=== PATIENT | female | born 1960 | race Caucasian/White ===

== ENCOUNTER 2020-11-08 16:52 | Emergency (ER) | payer OTHER ==
--- OUTSIDE RECORDS SUMMARY | 2020-11-08 16:53 | XMS REPORT | Continuity of Care Document ---
:1960 Author Organization [facility] t Address [address] [place] [address] Care Team Providers Name Role Phone José HERNANDEZ, K.H. Attending Clinician Problems This patient has no known problems. Allergies, Adverse Reactions, Alerts This patient has no known allergies or adverse reactions. Medications This patient has no known medications. Procedures This patient has no known procedures. Encounters Start End Encounter Admission Attending Care Care Encounter Source Date/Time Date/Time Type Type Clinicians Facility Department ID 2020-09-19 2020-09-19 Office SERGEY Kumar [id number] 14 08:58:56 10:41:40 Visit Arina Mohan [id number] César [id number] Michelle [id number] nal 059 Building Results This patient has no known results.
[2020-11-08 17:57] LABS: Protime INR 1.02
[2020-11-08 17:58] LABS: Absolute Lymphocytes (CBC) 1.2 K/uL (0.7-4.9); Basophils % 0.6 % (0-1.3); Hematocrit 42.3 % (36.0-45.0); Lymphocytes % 12.4 % (15.3-44.8); MPV 8.1 fL (7.6-11.3); RBC Red Blood Cell Count 4.29 M/uL (3.86-4.86)
[2020-11-08 18:34] LABS: Potassium 3.6 mmol/L (3.5-5.1); Troponin (Emerg Dept Use Only) 0.02 ng/mL (0.0-0.045)
--- NOTE | 2020-11-08 19:47 | RAD REPORT ---
EXAM DESCRIPTION: CT - Chest For Pe Angio - 11/08/2020 7:22 pm CLINICAL HISTORY: DYSPNEA COMPARISON: Chest Single View dated 11/08/2020hest Single View dated 11/08/2020 TECHNIQUE: Dynamically enhanced 3 mm thick images of the chest were obtained during administration o f approximately 150mL Isovue 370 IV contrast. Coronal and oblique MIP reconstruction images were gene rated and reviewed. Exam utilizes a protocol to evaluate the pulmonary arterial tree. All CT scans are performed using dose optimization technique as appropriate and may include automated exposure control or mA/KV adjustment according to patient size. 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 The malignant mass encircles the aorta and great vessel origins. The mass encircles and constricts the le ft pulmonary artery reducing diameter 30- 40%. There is a high-grade 80% circumferential stenosis of the right pulmonary artery. The malignancy encircles the great vessel origins with tumor mass extendi ng into the base of the neck. Multiple supraclavicular malignant lymph nodes are present. No pulmonary emboli are present. The malignant mass causes 40-50% narrowing of the distal trachea. There is 60% stenosis of the right mainstem bronchus origin. There is near complete occlusion from extrinsic compression of the left lance nstem bronchus with significantly compromised left upper and left lower lobar bronchi. Consolidation of the left upper and left lower lobes present sparing the superior aspect of the left lower lobe. Le ft base pleural effusion is present. No compromise and aorta diameter. No pericardial thickening or effusion. Trace amounts of interstitial and alveolar opacification present in the lateral aspect of the right u pper lobe. No right-sided pleural effusion. No pneumothorax. No bone destruction or gross evidence for chest wall invasion. Several small axillary lymph nodes are present on the left. Findings telephoned to Dr Alarcon 7:39 p.m. 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 Patient is at significant risk for infarction o f the right lung field. Mediastinal tumor mass encircles and compresses the left pulmonary artery by 30- 40%. Tumor mass causes near complete occlusion of the left mainstem bronchus and both left lobar bronchi. This is from intraluminal invasion and extrinsic compression. There is significant compromise of the distal trachea and proximal right mainstem bronchus. No pulmonary emboli. Near complete postobstructive consolidation of the left upper and left lower lobes. Left pleural effu lacie is present small in size.
--- NOTE | 2020-11-08 20:21 | RAD REPORT ---
EXAM DESCRIPTION: RAD - Chest Single View - 11/08/2020 7:03 pm CLINICAL HISTORY: DYSPNEA COMPARISON: None TECHNIQUE: AP portable chest image was obtained 11/08/2020 7:03 pm . FINDINGS: There is near complete opacification of the left hemithorax sparing a very small portion o f the left apex. Trachea is deviated slightly to the right. There is mass effect enlarging the right side of the mediastinum. Heart is obscured. Vasculature is obscured. No right-sided pleural effusion or pneumothorax. No acute bony abnormality seen. No acute aortic findings suspected. IMPRESSION: Large mass filling the mediastinum and probably extending into the left lung field. Dee ent may have large pleural effusion, postobstructive consolidation or a combination.
[2020-11-08 21:06] LABS: Arterial Blood Carboxyhemoglob 1.2 % (0-1.5); Blood Gas Oxyhemoglobin 77.5 % (94-97)
--- NOTE | 2020-11-09 01:04 | EDPHYS ---
Physician Documentation [facility] Name: Mimi Lim Age: 60 yrs Sex: Female : 1960 Arrival Date: 11/08/2020 Time: 17:01 Bed 3 Private MD: ED Physician Gutierrez Alarcon HPI: 11/08 17:04 This 60 yrs old Female presents to ER via EMS with complaints of Shortness Of rn Breath. 17:04 The patient has shortness of breath at rest, with light activity. Onset: The rn symptoms/episode began/occurred and became worse 3 week(s) ago. Duration: The symptoms are continuous. The patient's shortness of breath is aggravated by exertion, light activity, is alleviated by nothing. Associated signs and symptoms: Pertinent positives: non-productive cough, Pertinent negatives: chest pain, fever. Severity of symptoms: At their worst the symptoms were moderate. The patient has experienced similar episodes in the past. The patient has been recently seen by a physician:. Sent from Dr. Trent's office for low oxygen, EMS states 3 weeks worsening dyspnea. Has a right lung mass that is expected to be cancer, but has not had a CT scan. Not on oxygen at home. No fever. Oxygen low 80s. . - Immunization history:: Adult Immunizations unknown. - Family history:: not pertinent. - Social history:: Smoking status: unknown. - Hospitalizations: : No recent hospitalization is reported. ROS: 17:04 Constitutional: Negative for fever, chills, and weight loss, Eyes: Negative for injury, rn pain, redness, and discharge, Neck: Negative for injury, pain, and swelling, Cardiovascular: Negative for chest pain, palpitations, and edema, Respiratory: + sob and wheezing Abdomen/GI: Negative for abdominal pain, nausea, vomiting, diarrhea, and constipation, : Negative for injury, bleeding, discharge, and swelling, MS/Extremity: Negative for injury and deformity, Skin: Negative for injury, rash, and discoloration, Neuro: Negative for headache, numbness, tingling, and seizure. Exam: 17:04 Constitutional: This is a well developed, well nourished patient who is awake, alert, rn moderate tachypnea. Head/Face: Normocephalic, atraumatic. Eyes: Periorbital areas with no swelling, redness, or edema. ENT: NO oral swelling or stridor Cardiovascular: Regular rate and rhythm. No pulse deficits. Respiratory: + moderate tachypnea, + retractions, + diffuse wheezing and coarse breath sounds Abdomen/GI: Soft, non-tender Skin: Warm, dry, mottled lower extremities MS/ Extremity: Pulses equal, no cyanosis. Neuro: Awake and alert, GCS 15, oriented to person, place, time, and situation. Vital Signs: 17:01 BP 129 / 69; Pulse 90; Resp 28; Temp 98; Pulse Ox 91% on 80% CPAP; bp 17:38 BP 145 / 88; Pulse 83; Resp 24 S; Pulse Ox 95% on BiPAP; jd3 18:20 BP 123 / 95; Pulse 84; Resp 25 S; Pulse Ox 95% on R/A; jd3 19:42 Pulse 83; Resp 28; Pulse Ox 95% on BiPAP; ea 23:00 BP 132 / 80; Pulse 70; Resp 19; Pulse Ox 92% on BiPAP; ea 05 01:18 BP 168 / 78; Pulse 76; Resp 30; Pulse Ox 96% on BiPAP; ea MDM: 11/08 17:01 Patient medically screened. rn 11/08 17:03 Order name: Blood Culture Adult (2) rn 11/08 17:03 Order name: BMP rn 11/08 17:03 Order name: CBC with Diff rn 11/08 17:03 Order name: NT PRO-BNP; Complete Time: 19:45 rn 11/08 17:03 Order name: PT-INR; Complete Time: 19:45 rn 11/08 17:03 Order name: Ptt, Activated; Complete Time: 19:45 rn 11/08 17:03 Order name: Troponin (emerg Dept Use Only); Complete Time: 19:45 rn 11/08 17:03 Order name: Procalcitonin; Complete Time: 19:45 rn 11/08 17:04 Order name: Blood Culture EDMS 11/08 17:04 Order name: Basic Metabolic Panel; Complete Time: 19:45 EDVT 11/08 17:04 Order name: CBC with Automated Diff; Complete Time: 19:45 EDVT 11/08 17:20 Order name: COVID-19 : Document "Date of Symptom Onset" if Symptomatic. 11/08 20:45 Order name: ABG; Complete Time: 22:24 ea 11/08 17:03 Order name: BIPAP rn 11/08 17:03 Order name: XRAY CXR (1 view) rn 11/08 17:03 Order name: EKG; Complete Time: 17:04 rn 11/08 17:03 Order name: Cardiac monitoring; Complete Time: 17:17 rn 11/08 17:03 Order name: EKG - Nurse/Tech; Complete Time: 17:36 rn 11/08 17:03 Order name: IV Saline Lock; Complete Time: 17:36 rn 11/08 17:03 Order name: Labs collected and sent; Complete Time: 17:36 rn 11/08 17:03 Order name: O2 Per Protocol; Complete Time: 17:17 rn 11/08 17:03 Order name: O2 Sat Monitoring; Complete Time: 17:17 rn 11/08 17:03 Order name: CT Chest For PE Angio; Complete Time: 22:22 rn Administered Medications: 11/09 02:19 Drug: Ativan (LORazepam) 0.5 mg Route: IVP; Site: right hand; ea 02:20 Follow up: Response: No adverse reaction ea Disposition: 11/09/20 01:04 Transfer ordered to Other Acute Care Facility. Diagnosis are Pulmonary collapse, Compression of vein, Acute respiratory failure, Acute respiratory failure with hypoxia, Mediastinal mass with pulmary artey compression. - Reason for transfer: Higher level of care. - Accepting physician is Dr Chapman. - Condition is Fair. - Problem is new. - Symptoms have improved. Signatures: Dispatcher [employer] EDMS Lucio Jose MD MD rn Nikolai Venegas, STRIP POLISHER-C STRIP POLISHER-Cla1 Henna Busch RN RN ea Davies, Jonathon, RN RN jd3 Gutierrez Alarcon MD MD tw4 Corrections: (The following items were deleted from the chart) 01:43 01:04 11/09/2020 01:04 Transfer ordered to Other Acute Care Facility. Diagnosis is ea Pulmonary collapse; Compression of vein; Acute respiratory failure; Acute respiratory failure with hypoxia; Mediastinal mass with pulmary artey compression. Reason for transfer: Higher level of care. Accepting physician is Dr Chapman. Condition is Fair. Problem is new. Symptoms have improved. tw4 02:22 01:43 11/09/2020 01:04 Transfer ordered to Other Acute Care Facility. Diagnosis is ea Pulmonary collapse; Compression of vein; Acute respiratory failure; Acute respiratory failure with hypoxia; Mediastinal mass with pulmary artey compression. Reason for transfer: Higher level of care. Accepting physician is Dr Chapman. Condition is Fair. Problem is new. Symptoms have improved. ea
--- NOTE | 2020-11-09 01:04 | ER ---
Nurse's Notes [facility] Name: Mimi Lim Age: 60 yrs Sex: Female : 1960 Arrival Date: 11/08/2020 Time: 17:01 Bed 3 Private MD: Diagnosis: Pulmonary collapse;Compression of vein;Acute respiratory failure;Acute respiratory failure with hypoxia;Mediastinal mass with pulmary artey compression Presentation: 11/08 17:01 Chief complaint: EMS states: SOB INCREASING x3 WK, SAT 72 ON ROOM AIR. Coronavirus bp screen: shortness of breath, Client presents with at least one sign or symptom that may indicate coronavirus-19. Standard/surgical mask placed on the client. Provider contacted for isolation considerations. Ebola Screen: No symptoms or risks identified at this time. Initial Sepsis Screen: Does the patient meet any 2 criteria? No. Patient's initial sepsis screen is negative. Does the patient have a suspected source of infection? No. Patient's initial sepsis screen is negative. Risk Assessment: Do you want to hurt yourself or someone else? Patient reports no desire to harm self or others. Onset of symptoms is unknown. Care prior to arrival: IV initiated. 20 GA, in the right hand. 17:01 Method Of Arrival: EMS: [facility] bp 17:01 Acuity: NAVYA 2 bp Triage Assessment: 17:39 Respiratory: Reports shortness of breath at rest Onset: The symptoms/episode jd3 began/occurred gradually, the patient has moderate shortness of breath. - Immunization history:: Adult Immunizations unknown. - Family history:: not pertinent. - Social history:: Smoking status: unknown. - Hospitalizations: : No recent hospitalization is reported. Screenin:39 Abuse screen: Denies threats or abuse. Nutritional screening: No deficits noted. jd3 Tuberculosis screening: No symptoms or risk factors identified. Fall Risk Ambulatory Aid- None/Bed Rest/Nurse Assist (0 pts). Gait- Normal/Bed Rest/Wheelchair (0 pts) Mental Status- Oriented to own ability (0 pts). Total Bull Fall Scale indicates No Risk (0-24 pts). Assessment: 17:37 General: Appears comfortable, Behavior is calm, cooperative, appropriate for age. Pain: jd3 Denies pain. Neuro: Level of Consciousness is awake, alert, obeys commands, Oriented to person, place, time, situation. Cardiovascular: Capillary refill < 3 seconds Patient's skin is warm and dry. Rhythm is regular. Respiratory: Airway is patent pt on BiPAP, reports feeling better with the use of the BiPAP Respiratory effort is even, labored, Respiratory pattern is regular, symmetrical, Breath sounds are diminished. GI: No signs and/or symptoms were reported involving the gastrointestinal system. : No signs and/or symptoms were reported regarding the genitourinary system. EENT: No signs and/or symptoms were reported regarding the EENT system. Derm: Skin is intact, Skin is dry, Skin is normal, Skin temperature is warm. Musculoskeletal: Circulation, motion, and sensation intact. Range of motion: intact in all extremities. 18:20 Reassessment: Patient and/or family updated on plan of care and expected duration. Pain jd3 level reassessed. Patient is alert, oriented x 3, equal unlabored respirations, skin warm/dry/pink. Patient states feeling better. 19:41 Reassessment: Patient and/or family updated on plan of care and expected duration. Pain ea level reassessed. Pt remains on BiPAP. Provider at bedside updating pt and family on plan of care. 20:00 Reassessment: Patient and/or family updated on plan of care and expected duration. Pain ea level reassessed. Pt remains on BiPAP tolerating well. Awaiting on acceptance from accepting facility. 21:00 Reassessment: Patient and/or family updated on plan of care and expected duration. Pain ea level reassessed. Pt remains on BiPAP tolerating well. Awaiting on acceptance from accepting facility. 22:30 Reassessment: Patient and/or family updated on plan of care and expected duration. Pain ea level reassessed. Pt is alert and oriented x 3, remains on BiPAP tolerating well. Awaiting on an accepting facility. 23:00 Reassessment: Patient and/or family updated on plan of care and expected duration. Pain ea level reassessed. Pt is alert and oriented x 3, remains on BiPAP tolerating well. Awaiting on an accepting facility. 11/09 01:00 Reassessment: Patient and/or family updated on plan of care and expected duration. Pain ea level reassessed. Pt is alert and oriented x 3, remains on BiPAP tolerating well. Awaiting on an accepting facility. 01:15 Reassessment: Report given to Brittany at [facility] ICU. ea 01:21 Reassessment: Awaiting on EMS for transportation. ea 01:42 Reassessment: Patient and/or family updated on plan of care and expected duration. Pain ea level reassessed. EMS at facility for transfer. Pt remains on BIPAP left ED via stretcher per EMS, pt tolerating well. Vital Signs: 11/08 17:01 BP 129 / 69; Pulse 90; Resp 28; Temp 98; Pulse Ox 91% on 80% CPAP; bp 17:38 BP 145 / 88; Pulse 83; Resp 24 S; Pulse Ox 95% on BiPAP; jd3 18:20 BP 123 / 95; Pulse 84; Resp 25 S; Pulse Ox 95% on R/A; jd3 19:42 Pulse 83; Resp 28; Pulse Ox 95% on BiPAP; ea 23:00 BP 132 / 80; Pulse 70; Resp 19; Pulse Ox 92% on BiPAP; ea 11/09 01:18 BP 168 / 78; Pulse 76; Resp 30; Pulse Ox 96% on BiPAP; ea ED Course: 11/08 17:01 Patient arrived in ED. bp 17:01 Lucio Jose MD is Attending Physician. rn 17:03 Triage completed. bp 17:16 Elijah Coffey, RN is Primary Nurse. jd3 17:37 Arm band placed on. jd3 17:38 Patient has correct armband on for positive identification. Bed in low position. Call jd3 light in reach. Side rails up X2. air sampling and monitoring on. Pulse ox on. NIBP on. 19:02 XRAY CXR (1 view) In Process Unspecified. EDMS 19:22 CT Chest For PE Angio In Process Unspecified. EDMS 20:26 Attending Physician role handed off by Lucio Jose MD tw4 20:26 Gutierrez Alarcon MD is Attending Physician. tw4 11/09 01:41 No provider procedures requiring assistance completed. Patient transferred, IV remains ea in place. Administered Medications: 02:19 Drug: Ativan (LORazepam) 0.5 mg Route: IVP; Site: right hand; ea 02:20 Follow up: Response: No adverse reaction ea Outcome: 01:04 ER care complete, transfer ordered by . tw4 01:42 Transferred by ground EMS to [facility], Transfer form completed. ea 01:42 Condition: stable 01:42 Instructed on the need for transfer, Demonstrated understanding of instructions. 01:43 Patient left the ED. ea 02:22 Patient left the ED. ea Signatures: Dispatcher [employer] EDLucio Peralta MD MD rn Antunez, Elena, RN RN ea Davies, Jonathon, RN RN jd3 Peltier, Brian, RN RN bp Wadley, Terrence, MD MD tw4
[2020-11-09 02:00] VITALS: TEMP 98.5
[2020-11-09 02:04] VITALS: BP 111/52; O2SAT 99
[2020-11-09] MEDS ORDERED: LORazepam 2 MG/ML VIAL ONE (02:34)
--- NOTE | 2020-11-09 12:53 | EKG ---
Test Date: 2020-11-08 Test Time: 17:43:41 Quality Systems Specialist: ROSA M MEASUREMENT RESULTS: Intervals: Rate: 87 UT: 114 QRSD: 82 QT: 378 QTc: 454 [place]: P: 63 UT: 114 QRS: 81 T: 59 INTERPRETIVE STATEMENTS: Poor data quality, interpretation may be adversely affected Normal sinus rhythm Possible Left atrial enlargement Possible Lateral infarct, age undetermined Abnormal ECG No previous ECG available for comparison Electronically Signed On 11-09-20 12:51:39 CDT by Jeff Noel
== END 2020-11-09 02:22 ==
LOC: ER 16:52
DX: C34.90 Malignant neoplasm of unspecified part of unspecified bronchus or lung (principal); J98.19 Other pulmonary collapse; Z20.822 Contact with and (suspected) exposure to COVID-19
CPT/HCPCS: 93005; 87040 ×2; 85025; 80048; 36415; 85610; 85730; 84484; 84145; 83880; 71275; 71045; 82805; 94660 ×2; 96374; 99285; Q9967